=== PATIENT | female | born 1985 | race Caucasian/White ===

== ENCOUNTER 2022-08-06 11:03 | Inpatient (IN) | payer OTHER ==
[~2022-08-06] VITALS: Ht 162.6 cm; Wt 137.0 kg
[2022-08-06] VITALS (13 sets, daily range): BP systolic 99–151; BP diastolic 63–112
[~2022-08-06 11:03] MED LIST: LEVOTHYROXIN112 MC1 PO; ONDANSETRON4 MG PO; TAMOXIFEN CITRA10 MG PO; TRAMADOL HCL50 MG PO; TRULICITY1.5 MG/0.5; [UNRECOGNIZED DRUG - OTHER] PO
--- NOTE | 2022-08-06 16:00 | NUR ---
RECEIVED PT FROM PACU. PT IN STABLE CONDITION. YANG IN PLACE. CHRISTINA DRAINS PATENT. INCISION CDI. PT WITH C/O NAUSEA. WAS MEDICATION PRIOR TO ARRIVAL.
--- NOTE | 2022-08-06 20:20 | NUR ---
PATIENT RESTING IN BED AT THIS TIME WITH O2 VIA NASAL CANNULA IN PLACE AT 2LPM-O2 SAT 93-94% AT THIS TIME. PATIENT WITH C/O SEVERE POST-OP ABD PAIN.ABD IS SOFT WITH HYPOACTIVE BS. ABD DRESSING IN PLACE AND 2 CHRISTINA DRAINS INTACT WITH BLOODY DRAINAGE. MEDICATED WITH DILAUDID 1MG IVP FOR 9/10 PAIN SCALE. YANG CATH PATENT AND DRAINING YELLOW URINE. SCD'S IN PLACE. ENCOURAGED USE OF IS BUT WITH NEED REINFORCEMENT. IVF PATENT AND INFUSING VIA RIGHT WRIST AT 125CC/HR. SAFETY PRECAUTIONS REINFORCED. CALL LIGHT IN REACH. WILL CONT TO MONITOR,
[2022-08-07 00:02] VITALS: BP 136/92
--- NOTE | 2022-08-07 00:15 | NUR ---
PATIENT RESTING IN BED-CLAMMY TO TOUCH. PATIENT STATES THAT SHE IS DIAB AND TAKES TRULICITY. GLUCOSE MONITOR CHECKED AND WAS 247. IVF D51/2NS PATENT AND INFUSING VIA RIGHT WRIST. #1 CHRISTINA DRAIN-LEFT ABD DRAINED FOR 60CC OF BLOODY DRAINAGE. #2 CHRISTINA DRAIN RIGHT ABD DRAINED FOR 15CC OF SEROSANGUINOUS FLUID. YANG EMPTIED FOR 125CC OF VAL URINE. ABD DRAINING REMAINS CDI AT THIS TIME. O2 VIA NASAL CANNULA IN PLACE AT 2LPM. O2 SATS 95%. SCD'S IN PLACE. ATTEMPT TO CALL DR CANNON AT 0008-LEFT MESSAGE. AWAITING CALL BACK. WILL CONT TO MONITOR.
--- NOTE | 2022-08-07 00:40 | NUR ---
SPOKE WITH DR. CHAPARRO AND NEW ORDERS RECIEVED. WILL CHANGE IVF WHEN PROFILED ON EMAR. WILL CONT TO MONITOR.
--- NOTE | 2022-08-07 01:10 | NUR ---
PATIENT RESTING IN BED WITH HOB SLIGHTLY ELEVATED AND EYES CLOSED. RESPS ARE EVEN AND UNLABORED. O2 VIA NASAL CANNULA IN PLACE. IVF CHANGED TO NS AT 125CC/HR VIA RIGHT WRIST SITE. SITE REMAINS HEALTHY AT THIS TIME. CALL LIGHT IN REACH. WILL CONT TO MONITOR.
--- NOTE | 2022-08-07 02:31 | NUR ---
PATIENT RESTING IN BED-O2 OFF AND REAPPLIED. MEDICATED FOR PAIN WITH DILAUDID 1MG IVP FOR 8/10 ON PAIN SCALE AND WITH PHENERGAN 25MG IVP FOR NAUSEA. IVF NS PATENT AND INFUSING VIA RIGHT WRIST SITE-REMAINS HEALTHY AT THIS TIME. TAKING ONLY SMALL AMT OF ICE CHIPS AT THIS TIME. CALL LIGHT IN REACH. WILL CONT TO MONITOR.
[2022-08-07 04:05] VITALS: BP 132/91
--- NOTE | 2022-08-07 04:32 | NUR ---
PATIENT RESTING IN BED AT THIS TIME WITH EYES CLOSED. RESPS ARE EVEN AND UNLABORED AT THIS TIME. CHRISTINA DRAINS TO ABD INTACT. ABD DRESSING REMAINS DCI. O2 VIA NASAL CANNULA REAPPLIED. YANG CATH PATENT AND DRAINING VAL URINE. IVF NS PATENT AND INFUSING VIA RIGHT WRIST SITE AT 125CC/HR. PATIENT HAS ONLY BEEN TAKING A FEW ICE CHIPS THROUGHOUT THE NIGHT. CALL LIGHT IN REACH. WILL CONT TO MONITOR.
[2022-08-07 05:32] LABS: BASO% 0.4 % (0-3); EOS% 0.3 % (0-8); HEMATOCRIT 43.5 % (37.0-47.0); HEMOGLOBIN 13.3 g/dl (12.0-16.0); IMMATURE GRANULOCYTES 0.3 % (0.0-5.0); LYMPH% 12.8 % (15-41); MEAN CELL VOLUME 92.6 fL CALC (80.0-100.0); MEAN CORPUSCULAR HGB 28.3 pG CALC (26.0-32.0); MEAN CORPUSCULAR HGB CONC 30.6 g/dL CAL (32.0-36.0); MONO% 6.8 % (2-13); NEUT# 14.11 thou/uL (2.00-7.15); NEUT% 79.4 % (42-76); RED BLOOD COUNT 4.7 mill/uL (4.20-5.60); RED CELL DISTRI WIDTH 13.3 % (11.5-15.5)
[2022-08-07 06:57] VITALS: BP 140/90
--- NOTE | 2022-08-07 12:42 | NUR ---
DR. IVY TALKED WITH PT AT BEDSIDE PT STATED FEELING NAUSEA, ITCHY, PROVIDER STATED POSSIBLE MEDICATION REACTION. PT STATED UNDERSTANDING. PT C/O OF CHEST PAIN TO BELLY AREA. PT URINE OUPUT VERY LITTLE. PROVIDER AWARE. PT CHRISTINA DRAINS EMPTIED 60 TOTAL OUTPUT. PT DENIES ADDITIONAL NEEDS AT THE TIME.
--- NOTE | 2022-08-07 16:25 | NUR ---
PT AWARE NEED OF AMBULATION AND UP TO CHAIR.
[2022-08-07 16:41] VITALS: BP 141/76
[2022-08-07 18:40] VITALS: BP 123/85
--- NOTE | 2022-08-07 19:30 | NUR ---
RECEIVED REPORT FROM DAYSHIFT NURSE. PT NOTED LAYING IN BED. SURGICAL INCISIONS DRESSED AND TWO CHRISTINA DRAINS NOTED WITH RED OUTPUT. PT COMPLAINED OF PAIN 5 OUT OF 10 AT THIS TIME AND STATES FEELING BETTER THEN YESTERDAY. EDUCATED PT ON IMPORTANCE OF WALKING AND MOVING AROUND POST OP. ENCOURAGED PT TO WALK BEFORE END OF NIGHT. PT AGREED. CALL LIGHT WITHIN REACH AND SAFETY PRECAUTIONS IN PLACE.
--- NOTE | 2022-08-07 21:51 | NUR ---
WALKED PT DOWN THE HALLWAY PER NURSE RAMON.
--- NOTE | 2022-08-08 | NUR ---
PT LAYING IN BED, FOWLERS SLEEPING WITH O2 NASAL CANNULA ON DUE TO PT HAVING EXORTIONAL SOB. JPS DRAINED AND CHARTED OUTPUT. CALL LIGHT WITHIN REACH AND SAFETY PRECAUTIONS IN PLACE.
--- NOTE | 2022-08-08 04:00 | NUR ---
PT LAYING FOWLERS IN BED, SLEEPING AT THIS TIME. NASAL CANNULA IN PLACE, NO S/S OF DISTRESS. CALL LIGHT WITHIN REACH AND SAFETY PRECAUTIONS IN PLACE.
[2022-08-08 04:13] VITALS: BP 109/71
[2022-08-08 05:47] LABS: BASO% 0.2 % (0-3); IMMATURE GRANULOCYTES 0.3 % (0.0-5.0); LYMPH% 11.9 % (15-41); MEAN CELL VOLUME 93.2 fL CALC (80.0-100.0); MEAN CORPUSCULAR HGB 27.9 pG CALC (26.0-32.0); MEAN CORPUSCULAR HGB CONC 29.9 g/dL CAL (32.0-36.0); MONO% 5.7 % (2-13); NEUT# 12.58 thou/uL (2.00-7.15); NEUT% 78.9 % (42-76); RED BLOOD COUNT 3.98 mill/uL (4.20-5.60); RED CELL DISTRI WIDTH 13.6 % (11.5-15.5)
[2022-08-08 05:49] LABS: HEMATOCRIT 37.1 % (37.0-47.0); HEMOGLOBIN 11.1 g/dl (12.0-16.0)
[2022-08-08 06:04] LABS: CREATININE 1.3 mg/dL (0.5-1.0); POTASSIUM 4.5 mmol/l (3.5-5.1)
--- NOTE | 2022-08-08 06:28 | NUR ---
PT VOMITED 400CC OF RED/BROWN EMESIS. ADMINISTERED N/V MEDICATION PER EMAR TO PT. SAT PT UP ON SIDE OF BED WITH GINGERALE. CALL LIGHT WITHIN REACH AND SAFETY PRECAUTIONS IN PLACE.
[2022-08-08 06:40] VITALS: BP 133/64
--- NOTE | 2022-08-08 06:40 | NUR ---
[facility]
--- NOTE | 2022-08-08 07:45 | NUR ---
PT RESTING IN HIGH FOWLERS POSITION. A/OX3 ASSESSMENT AND VS COMPLETED HEART RHYTHM NORMAL .PT STATED FEELING NAUSEA TO BE MEDICATED.RESPIRATIONS ON ROOM AIR ALL SAFETY PRECAUTIONS IN PLACE WITH CALL LIGHT INREACH.
--- NOTE | 2022-08-08 07:55 | NUR ---
patient requested to get in bed, patient sitting on side of bed eating breakfast.
[2022-08-08 10:57] VITALS: BP 139/77
--- NOTE | 2022-08-08 12:00 | NUR ---
PT RESTING IN BED MEDICATED PER EMAR FOR PAIN .
[2022-08-08 14:45] VITALS: BP 127/78
--- NOTE | 2022-08-08 16:50 | NUR ---
PT RESTING IN HIGH FOWLERS POSITON AID STATED PT VOMITED. ZOFRAN PROVIDED.
[2022-08-08 19:07] VITALS: BP 143/88
--- NOTE | 2022-08-08 22:36 | NUR ---
PT BG NORMAL RANGE NO INSULIN GIVEN , CALL LIGHT WITHIN REACHED WILL CONT TO MONITOR
[2022-08-08 23:47] VITALS: BP 131/84
--- NOTE | 2022-08-09 02:30 | NUR ---
DILAUDID 1MG Q2 PRN GIVEN PER REQUEST FOR AB PAIN, PT REASSESS AND CARE PROVIDED, CALL LIGHT WITHIN REACHED, WILL CONT TO MONITOR
[2022-08-09 03:55] VITALS: BP 143/87
[2022-08-09 05:25] LABS: BASO% 0.3 % (0-3); EOS% 2.6 % (0-8); HEMATOCRIT 36.2 % (37.0-47.0); HEMOGLOBIN 10.9 g/dl (12.0-16.0); LYMPH% 9.5 % (15-41); MEAN CELL VOLUME 92.3 fL CALC (80.0-100.0); MEAN CORPUSCULAR HGB 27.8 pG CALC (26.0-32.0); MEAN CORPUSCULAR HGB CONC 30.1 g/dL CAL (32.0-36.0); MONO% 3.8 % (2-13); NEUT# 9.84 thou/uL (2.00-7.15); NEUT% 82.8 % (42-76); RED BLOOD COUNT 3.92 mill/uL (4.20-5.60); RED CELL DISTRI WIDTH 13.4 % (11.5-15.5)
[2022-08-09 06:05] LABS: ANION GAP 10 (6-22 (CALC)); BUN 17 mg/dL (7-17); BUN/CREATININE RATIO 19 (12-20 (CALC)); CARBON DIOXIDE 21 mmol/l (22-30); CHLORIDE 111 mmol/l (95-108); CREATININE 0.9 mg/dL (0.5-1.0); GFR FOR AFR.AMER. > 60 ML/MIN (>=60 (CALC)); GFR OTHER RACES > 60 ML/MIN (>=60 (CALC)); POTASSIUM 4.4 mmol/l (3.5-5.1); SODIUM 138 mmol/l (137-146)
[2022-08-09 06:28] VITALS: BP 138/90
--- NOTE | 2022-08-09 07:55 | NUR ---
PT RESING IN BED WITH EYES CLOSED. UPON AWAKENING PT STATES PAIN IS 8/10. REPSOTIONED. EDICATED SEE EAR. FOLE IN PLACE DRAINING URINE VIA GRAVITY SHOWING PEACH COLORED URINE. CHRISTINA DRAIN #1 OUTPUT @0750 90, OUPUT AT 0755 60CC. CHRISTINA DRAIN #2: 40CC. MIDLINE INCISION TO ABD IN CLEAN/DRY AND INTACT. UPDATED PT IN CURRENT PLAN OF CARE. FALL/SAFTEY PRECAUTION IN PLACE. CALL LIGHT WITHIN REACH.
[2022-08-09 10:59] VITALS: BP 145/84
--- NOTE | 2022-08-09 12:15 | NUR ---
PT IN BED COMPLANING OF PAIN 03/11. REPOSTIONED. MEDICATED SEE EMAR
--- NOTE | 2022-08-09 13:30 | NUR ---
PT UNABLE TO TOLERATE CONTRAST. MD NOTIFIED/AWARE.
--- NOTE | 2022-08-09 16:16 | NUR ---
PT UNABLE TO TOLERATE NG TUBE PER D ORDERS. NOTIFIED. EDUCATED PT ON NGTUBE EXPLAINED RISKS FOR REFUSAL. PT INDICATED UNDERSTANDING. FALL/SAFTEY PRECAUTION IN PLACE. CALL JOSTIN NICHOLE
[2022-08-09 19:00] VITALS: BP 155/92
[2022-08-09 19:19] VITALS: BP 155/92
--- NOTE | 2022-08-09 20:35 | NUR ---
MEDICATED PT BEFORE TRYING TO INSERTING NG TUBE BY JOCKEY'S AGENT BUT IT WAS UNSUCCESSFUL, PT DID NOT TOLERATE IT WELL, HAD TO REMOVE NG TUBE
[2022-08-10] VITALS (13 sets, daily range): BP systolic 122–186; BP diastolic 71–99
--- NOTE | 2022-08-10 02:51 | NUR ---
PT REFUSED NG AND TO BE NPO, REQUESTING TO DRINK WATER AND STATED ICE CHIPS NOT ENOUGHT FOR HER NURSE PAGE SAUSAGE MIXER TO HELP EDUCATE PT
--- NOTE | 2022-08-10 07:25 | NUR ---
patient sitting up in recliner.
--- NOTE | 2022-08-10 08:00 | NUR ---
GOT REPORT FROM PIT RECORDER NURSE. PATIENT ASSESSED. AOX4. PATIENT LAPS SITES ARE CLEAN DRY INTACT WITH DERMABOND. PATIENT HAS SURGICAL INCISION, BANDAGE ID DIRTY AND LIFTING. OLD DRESSING REMOVED AND INCISION CLEAN AND REDRESSED. PATIENT HAS 2 CHRISTINA DRAINS, ONE DRAIN IN THE LLQ AND ONE IN THE RLQ. BOTH EMPITED AND RECORDED. PATIENT ALSO HAS A YANG CATHETER IN PLACE. EMPTIED AND RECORDED. PATIENT HAS A PICC LINE IN THE MARY KAY. THE PURPLE LUMEN DOES NOT DRAW BACK BLOOD AND UNABLE TO FLUSH, THE RED DOES NOT DRAW BACK BLOOD BUT DOES FLUSH. GREEN CAPS PLACED ON PURPLE LUMEN AND ON ALL PORT HUB ON THE IV LINE FOR THE NORMAL SALINE. PATIENT C/O OF PAIN OF 6/10 IN HER ABD AND STATES THAT SHE FEELS NAUSEATED. SHE STATES THAT HER COMFORTABLE LEVEL OF PAIN IN A 3/4 OUT OF 10. ADVISED THAT I WILL REVIEW MEDICATIONS AND BRING WHAT I CAN. PATIENT VERBALIZED UNDERSTANDING AND AGREEMENT. PATIENT HAS FALL PRECAUTIONS IN PLACE. CALL LIGHT AND BEDSIDE TABLE WITH IN REACH. ADVISED TO CALL IF NEEDING ANYTHING. PATIENT VERBALIZED UNDERSTANDING.
--- NOTE | 2022-08-10 09:12 | NUR ---
patient requested to get back in bed.
--- NOTE | 2022-08-10 12:00 | NUR ---
PATIENT IS IN BED SLEEPING. CT COMPLETED. FALL PRECAUTIONS IN PLACE. CALL LIGHT AND BEDSIDE TABLE WITH IN REACH.
--- NOTE | 2022-08-10 16:35 | NUR ---
PATIENT LEAVING UNIT NOW FOR THE OR.
--- NOTE | 2022-08-10 16:58 | NUR ---
SPOKE TO ROBBIE (PATIENT AUNT) AND INFORMED HER THAT PATIENT IS NOW IN OR FOR PROCEDURE. I TOLD HER THAT OR NURSE WILL GIVE HER A CALL WHEN PATIENT IS OUT OF PROCEDURE. SHE VERBALIZED UNDERSTANDING AND AGREEMENT.
--- NOTE | 2022-08-10 21:57 | NUR ---
PATIENT RESTING IN BED-NPO WITH NG TUBE TO LOW INTERMITTANT WALL SUCTION DRAINING THICK DARK GREEN SECREATIONS. MEDICATED WITH PHENERGAN 25MG IVPB ORDERED FOR NAUSEA. IV SITE TO RIGHT UPPER ARM PICC WITH IVF NS PATENT AND INFUSING AT 125CC/HR. SITE APPEARS HEALTHY AT THIS TIME. YANG PATENT AND DRAINING YELLOW URINE. CHRISTINA DRAINS ARE INTACT-DRESSINGS ARE INTACT AND DRAINING PALE PINK FLUID. ABD DRESSING IS CDI AT THIS TIME. O2 VIA NASAL CANNULA INTACT AT 2LPM. CALL LIGHT IN REACH. WILL CONT TO MONITOR.
--- NOTE | 2022-08-10 22:19 | NUR ---
Check patient glucose meter check @2000, the meter readed 124.
--- NOTE | 2022-08-10 23:57 | NUR ---
PATIENT RESTING IN BED WITH HOB ELEVATED AND NGT IN PLACE-LIWS DRAINING THICK DARK GREEN. O2 VIA NASAL CANNULA IN PLACE AT 2LPM. YANG DRAINING YELLOW URINE. IVF NS PATENT AND INFUSING VIA RIGHT UPPER ARM PICC AT 125CC/HR. TORADOL 15MG IVP GIVEN. SCD'S IN PLACE. CALL LIGHT IN REACH. WILL CONT TO MONITOR.
--- NOTE | 2022-08-11 01:00 | NUR ---
PATIENT ASKING FOR PAIN AND NAUSEA MEDS-MEDICATED WITH DILAUDID 1MG IVP ORDERED FOR PAIN. LEFT CHRISTINA#1 EMPTIED FOR 80CC OF SEROSANGUINOS FLUID. RIGHT CHRISTINA#@-EMPTIED FOR 40CC OF SEROSANGUINOUS FLUID. MEDICATED WITH BENEDRYL FOR ITCHING. ASKING FOR PHERGAN FOR NAUSEA-TOO EARLY. IVF NS PATENT AND INFUSING AT 125CC/HR. ASKING FOR PO FLUID. EXPLAINED TO PATIENT AGAIN THAT SHE IS NPO WITH NG TUBE AND THAT SHE CAN'T HAVE ANYTHING TO EAT OR DRINK AT THIS TIME. NGTUBE WITH GREEN DRAINAGE AT THIS TIME. YANG PATENT AND DRAINING YEKLLOW URINE. SCD'S IN PLACE. O2 AT 2LPM IN PLACE. CALL LIGHT IN REACH. WILL CONT TO MONITOR.
[2022-08-11 03:43] VITALS: BP 183/116
[2022-08-11 04:00] VITALS: BP 155/96
--- NOTE | 2022-08-11 04:25 | NUR ---
PATIENT RESTING IN BED WITH HOB ELEVATED AND O2 VIA NASAL CANNULA IN PLACE AT 2LPM. PATIENT SNORING WITH LOUD BREATHING. LAB WORK DRAWN FROM PURPLE PORT FROM RIGHT UPPER ARM PICC. IVF NS PATENT AND INFUSING AT 125CC/HR. UNABLE TO FLUSH RED PORT-RESISTANCE MET. CALL LIGHT IN REACH. WILL CONT TO MONITOR.
[2022-08-11 04:39] LABS: BASO% 0.5 % (0-3); EOS% 6.2 % (0-8); HEMATOCRIT 38.2 % (37.0-47.0); HEMOGLOBIN 11.2 g/dl (12.0-16.0); IMMATURE GRANULOCYTES 0.6 % (0.0-5.0); MEAN CELL VOLUME 95.5 fL CALC (80.0-100.0); MEAN CORPUSCULAR HGB CONC 29.3 g/dL CAL (32.0-36.0); MONO% 6.6 % (2-13); NEUT# 10.26 thou/uL (2.00-7.15); NEUT% 65.1 % (42-76); RED CELL DISTRI WIDTH 13.6 % (11.5-15.5)
[2022-08-11 04:50] LABS: ALBUMIN 3.3 g/dL (3.2-5.0); ALKALINE PHOSPHATASE 50 u/l (38-126); ANION GAP 8 (6-22 (CALC)); BILIRUBIN, TOTAL 0.2 mg/dL (0.02-1.3); BUN 15 mg/dL (7-17); BUN/CREATININE RATIO 18 (12-20 (CALC)); CHLORIDE 110 mmol/l (95-108); CREATININE 0.8 mg/dL (0.5-1.0); GFR FOR AFR.AMER. > 60 ML/MIN (>=60 (CALC)); GFR OTHER RACES > 60 ML/MIN (>=60 (CALC)); SGOT/AST 49 u/l (14-36); SODIUM 143 mmol/l (137-146); TOTAL PROTEIN 6.2 g/dL (6.3-8.2)
[2022-08-11 04:53] LABS: CARBON DIOXIDE 29 mmol/l (22-30)
[2022-08-11 05:00] VITALS: BP 155/96
[2022-08-11 05:46] VITALS: BP 111/77
--- NOTE | 2022-08-11 08:00 | NUR ---
PATIENT IS IN BED SLEEPING. PATIENT HAS NG TUBE IN PLACE, PICC LINE IN THE RIGHT UPPER ARM, [address], YANG IN WELL. NS AT 125ML/HR. PATIENT IS AWAITING MD TO COME TO SEE HER. SHE IS REQUESTING TO HAVE THE NG TUBE REMOVED. INFORMED HER THAT MD WILL MAKE THAT DECISION WHEN HE COMES TO SHE HER. PATIENT VERBALIZED UNDERSTANDING. FALL PRECAUTIONS IN PLACE. CALL LIGHT AND BEDSIDE TABLE WITH IN REACH. ADVISED TO CALL IF NEEDING ANYTHING.
[2022-08-11 08:54] VITALS: BP 177/97
--- NOTE | 2022-08-11 09:50 | NUR ---
PATIENT CALLED REQUESTED PAIN MEDICATION AND SOMETHING FOR NAUSEA. ADVISED HER I WOULD GET MEDICATION FOR HER.
--- NOTE | 2022-08-11 12:43 | NUR ---
MD ROUNDED WITH PATIENT AND ORDERED TO HAVE NG REMOVED, CHRISTINA DRAIN 2 (RLQ) TO BE REMOVED, REMOVE YANG, TURN FLUIDS TO 75ML/HR, START ON FULL LIQUID DIET, AND TO AMBULATE PATIENT. PATIENT AGREED WITH PLAN. NO QUESTIONS AT THIS TIME FROM PATIENT.
--- NOTE | 2022-08-11 13:42 | NUR ---
NG TUBE, CHRISTINA DRAIN 2, AND YANG ALL REMOVED. PATIENT TOLERATED WELL. FLUIDS RATE CHANGED TO 75ML/HR FROM 125ML/HR. PATIENT SO FAR HAS TOLERED FULL LIQUIDS. ASKED IF THE DRESSING FOR THE INCISION SHOULD BE CHANGED AGAIN SINCE HE HAD JUST DOWN IT AND HE STATES NO NEED TO CHANGE FOR TODAY. RESUME DRESSING CHANGES TOMORROW (08/12/22). PATIENT MADE AWARE AND AGREED. PATIENT ASSIST ON GETTING UP FROM BED A FEW TIMES BUT NO WALKING WAS DOWN. PATIENT JUST WANTED TO STAND A FEW TIMES AND THEN THE NEXT TIME SHE WOULD TRY WALKING A BIT.
[2022-08-11 17:30] VITALS: BP 136/61
--- NOTE | 2022-08-11 19:30 | NUR ---
PATIENT RESTING IN BED WITH EYES CLOSED- RESPS ARE EVEN AND UNLABORED AT THIS TIME. LAST O2 SAT WAS 94% ON ROOM AIR. PATIENT WITH NG OUT. TAKING PO FLUIDS AND TOLERATING OK. STILL USING ANTIEMETIC MEDS FOR NAUSEA-NO VOMITTING. IVF NS PATENT AND INFUSING VIA RIGHT UPPER ARM PICC AT 75CC/HR. ABD IS SOFT WITH HYPOACTIVE BS. CHRISTINA #1 TO LEFT ABD REMAINS INTACT WITH MODERATE AMT OF SEROSANGUINOUS FLUID. CHRISTINA#@ WAS D/C'ED TODAY ON DAYSHIFT ANDSMALL DRESSING TO RIGHT ABD IS CDI. MIDLINE DRESSING IS CDI. CALL LIGHT IN REACH. WILL CONTTO MONITOR.
--- NOTE | 2022-08-11 23:40 | NUR ---
PATIENT RESTING IN BED-C/O SORE THROAT AND HEADACHE. MEDICATED WITH CHLOROSEPTIC BOB FOR SORE THROAT AND TORADOL FOR HEADACHE. PATIENT ASKING FOR MORE ANTIEMETIC MEDS-TOO EARLY AT THIS TIME AND PATIENT WAS MADE AWARE. #1 CHRISTINA EMPTIED FOR 90CC OF SEROSANGUINOUS FLUID AND CHARTED. SAFETY PRECAUTIONS REINFORCED. CALL LIGHT IN REACH. WILL CONT TO MONITOR.
[2022-08-12] VITALS (8 sets, daily range): BP systolic 122–153; BP diastolic 55–93
--- NOTE | 2022-08-12 01:24 | NUR ---
PATIENT ASSIST OOB TO THE BSC TO VOID 250CC OF VAL URINE. ASSISTED BACK TO BED. C/O ITCHING AND MEDICATED WITH BENEDRYL 25MG IVP VIA RIGHT UPPER ARM PICC. MEDICATED FOR POST-OP PAIN WITH DILAUDID 1MG IVP FOR 7/10 PAIN SCALE. MEDICATED FOR NAUSEA WITH PHENERGAN 25MG IN 50CC OF NS FOR NAUSEA, CHRISTINA EMPTIED FOR ANOTHER 90CC OF SEROSANGUINOUS FLUID. IVF PATENT AND INFUSING VIA RIGHT UPPER ARM PICC. SAFETY PRECAUTIONS REINFORCED. CALL LIGHT IN REACH. WILL CONT TO MONITOR.
--- NOTE | 2022-08-12 05:30 | NUR ---
PATIENT RESTING IN BED-C/O ABD PAIN, CHEST PAIN AND ASKING FOR NAUSEA MEDS.. MEDICATED WITH ZOFRAN 4MG IVP FOR NAUSEA AND WITH DILAUDID 1MG IVP FOR PAIN. RIGHT UPPER ARM PICC REMAINS INTACT WITH IVF NS PATENT AND INFUSING AT 75CC/HR. SECOND PORT WITH NOT FLUSH.LEFT ABD CHRISTINA DRAIN CONT TO DRAIN SEROSANGUINOUS FLUIDS. ENCOURAGED USE OF IS AND INCREASED AMBULATION FOR QHICKER RECOVERY. CALL LIGHT IN REACH. SAFETY [RECAUTIONS REINFORCED. WILL CONT TO MONITOR.
--- NOTE | 2022-08-12 08:40 | NUR ---
patient sitting up in recliner.
--- NOTE | 2022-08-12 09:05 | NUR ---
PT RESTING IN RECLINER UPON ENTERING ROOM. ASSESSENT COPLETED. DRESSING CDI. UPDATED [facility]. PT INDICATED UNDERSTANDING. FALL/SAFTEY PRECAUTIO ADY PLACE. CALL LIGHT WITHIN REACH
--- NOTE | 2022-08-12 10:00 | NUR ---
patient requested to get back in bed.
--- NOTE | 2022-08-12 12:21 | NUR ---
DRESSING CHANGE PERFORMED. PT TOLERATED WELL. PT STATES NO FEELING OF NAUSEA. FALL/SAFTEY PRECAUTIONS IN PLACE. CALL LIGHT WITHIN REACH.
--- NOTE | 2022-08-12 16:00 | NUR ---
FAMILY MEMBERS AT BEDSIDE. PT STATES NO NEEDS AT THIS TIME. FALL/SAFTEY PRECAUTION IN PLACE. CALL LIGHT WITHIN REACH.
--- NOTE | 2022-08-12 20:00 | NUR ---
PATIENT RESTING IN BED WITH HOB SLIGHTLY ELEVATED. EYES ARE CLOSED AND RESPS ARE EVEN AND UNLABORED. IVF NS PATENT AND INFUSING VIA RIGHT UPPER ARM PICC AT 75CC/HR. CHRISTINA DRAIN TO LEFT ABD INTACT AND DRAINING SEROSANGUINOUS FLUID. ABD DRESSINGS ARE CDI AT THIS TIME. CALL LIGHT IN REACH. WILL CONT TO MONITOR,.
--- NOTE | 2022-08-12 21:20 | NUR ---
PATIENT RESTING IN BED-C/O NAUSEA AND ABD PAIN-AKING FOR PHERGAN BUT TOO EARLY. MEDICATED WITH ZOFRAN 4MG IVP FOR NAUSEA AND DILAUDID 1MG IVP GIVEN FOR PAIN. GLUCOSE MONITOR WAS 141-NO COVERGE NEEDED. CALL LIGHT IN REACH. WILL CONT TO MONTIOR.
--- NOTE | 2022-08-13 00:01 | NUR ---
PATIENT RESTING IN BED ASKING FOR PAIN AND NAUSEA MEDS AGAIN. MEDICATED WITH DILAUDID 1MG IVP FOR 02/09 ABD PAIN AND PHERGAN 25MG IN 50CC OF NS HUNG AND INFUSING VIA RIGHT UPPER ARM PICC. REINFORCED WITH THE PATIENT SOME OF THE SIDE EFFECT OF NARCOTICS THAT INCLUDE DILAUDID THAT ARE DECREASED PARASTOLISIS OF THE BOWELS. INCREASED ACTIVITY INCLUDING AMBULATION PROMOTES FASTER RECOVERY FROM ABD SURGERY. ENCOURAGED USE OF IS Q1H WHILE AWAKE IN REPS OF 10. STATES THAT SHE HAS BEEN USING IT. IVF NS PATIENT AND INFUSING VIA RIGHT UPPER ARM PICC AT 75CC/HR. LEFT ABD CHRISTINA DRAIN EMPTIED FOR 110CC OF SEROSANGUINOUS FLUID. ABD DRESSING ARE CDI. SAFETY PRECAUTIONS REINFORCED. CALL LIGHT IN REACH. WILL CONT TO MONITOR.
[2022-08-13 03:14] VITALS: BP 152/88
--- NOTE | 2022-08-13 03:18 | NUR ---
PATIENT CONT TO C/O NAUSEA AND SPITTING UP SMALL AMT OF GREENISH COLORED FLUID. ASKING FOR PHERAGAN AND DILAUDID. TOO EARLY FOR PHENERGAN. MEDICATED WITH ZOFRAN FOR NAUSEA AND WITH DILAUDID FOR PAIN. SITTING UP ON THE SIDE OF THE BED. CHRISTINA DRAIN INTACT AND CONT TO DRAIN SERSANGUINOUS FLUID. IVF PATENT AND INFUSING AT 75CC/HR. CALL LIGHT IN REACH. WILL CONT TO MONITOR.
--- NOTE | 2022-08-13 03:45 | NUR ---
PATIENT ASSISTED OOB TO BSC TO VOID 250CC OF VAL URINE. ASSISTED BACK TO THE BED. CALL LIGHT IN REACH. WILL CONT TO MONITOR.
[2022-08-13 05:32] VITALS: BP 153/85
--- NOTE | 2022-08-13 06:15 | NUR ---
patient sitting in recliner.
--- NOTE | 2022-08-13 06:15 | NUR ---
PATIENT SITTING UP ON THE SIDE OF THE BED-SPITTING INTO EMESIS BAG-BELCHING. ASKING FOR PHERGAN AND PAIN MEDS. PHENERGAN 25MG IN 50CC IVPB HUNG ORDERED. DILAUDID 1MG GIVEN FOR ABD PAIN. CALL LIGHT IN REACH. WILL CONT TO MONITOR.
--- NOTE | 2022-08-13 07:37 | NUR ---
patient requested to get back in bed, staff told patient that staff will walk her after breakfast if she is not dizzy.
--- NOTE | 2022-08-13 08:00 | NUR ---
PT AWAKE AND ALERT UPON ENTERING ROOM. ASSESSMENT COMPLELTED. PT STATES PAIN IN ABD. PT EDUCATED ON PLAN OF CARE/ PAIN MEDICATION. AMBULATION ENCOURAGED. PT STATES NOT AT THIS TIME. CHRISTINA #[address], DRESSING CDI. FALL/SAFTEY PRECAUTION IN PLACE. CALL LIGHT WITHIN REACH
[2022-08-13 09:12] VITALS: BP 134/82
[2022-08-13 10:34] LABS: HEMATOCRIT 34.9 % (37.0-47.0); HEMOGLOBIN 10.7 g/dl (12.0-16.0); MEAN CELL VOLUME 91.4 fL CALC (80.0-100.0); MEAN CORPUSCULAR HGB CONC 30.7 g/dL CAL (32.0-36.0); RED BLOOD COUNT 3.82 mill/uL (4.20-5.60); RED CELL DISTRI WIDTH 13.3 % (11.5-15.5)
[2022-08-13 10:44] LABS: ANION GAP 9 (6-22 (CALC)); BUN 9 mg/dL (7-17); BUN/CREATININE RATIO 13 (12-20 (CALC)); CARBON DIOXIDE 28 mmol/l (22-30); CHLORIDE 104 mmol/l (95-108); CREATININE 0.7 mg/dL (0.5-1.0); GFR FOR AFR.AMER. > 60 ML/MIN (>=60 (CALC)); GFR OTHER RACES > 60 ML/MIN (>=60 (CALC)); POTASSIUM 3.5 mmol/l (3.5-5.1); SODIUM 138 mmol/l (137-146)
--- NOTE | 2022-08-13 12:15 | NUR ---
PT RESTING IN BED. STATES NAUSEA SUBSIDED WITH MEDICATION. STATES NO NEEDS AT THIS TIME. FALL/SAFTEY PRECAUTII ADY PLACE. CALL LIGHT WITHIN REACH.
[2022-08-13 13:43] VITALS: BP 141/86
--- NOTE | 2022-08-13 16:00 | NUR ---
DRESSIGN CHANGED PERFORMED. PT TOLERATED WELL. STATES NAUSEA IS " BETTER" FALL/SAFTEY PRECAUTION IN PLACE. CALL LIGHT WITHIN REACH
[2022-08-13 17:54] VITALS: BP 148/84
--- NOTE | 2022-08-13 20:00 | NUR ---
RECEIVED REPORT FROM NURSE VALERI, PATIENT RESTING IN BED, LEFT SIDE LYING POSITION, ONGOING IV MARY KAY DOUBLE LUMEN PICC LINE NS @ 75 CC/HR INFUSING WELL, BOWLE SOUNDS HYPOACTIVE 3/7 C/O BLOATING AND GAS PAIN, ABDOMINAL DRESSING CDI, CHRISTINA DRAIN X 1 DRAINING SEROSAGUINEOUS OUTPUT 210CC, USES INCENTIVE SPIROMETER, CALL LIGHT IN REACH.
[2022-08-13 23:02] VITALS: BP 147/80
[2022-08-14] VITALS (8 sets, daily range): BP systolic 123–152; BP diastolic 71–97
--- NOTE | 2022-08-14 | NUR ---
PATIENT RESTING IN BED, NAUSEA, SCHEDULED REGLAN GIVEN.CALL LIGHT IN REACH.
--- NOTE | 2022-08-14 04:27 | NUR ---
PATIENT C/O NAUSEA AND VOMITTED SMALL AMOUNT OF YELLOWISH GREENISH LIQUID, PRN ZOFRAN GIVEN.
--- NOTE | 2022-08-14 07:00 | NUR ---
Receive report from Arroyo RN.
--- NOTE | 2022-08-14 08:00 | NUR ---
Alert and oriented patient x3. Assessment head-to-toe complete. Patient does not refer pain at the time but refer nausea. Good heart and respiratory rhythm at the time of this note. GP in the L+ ABD SIZE. Dressing in the abd clean at this time. Picc line in the R+ UA. Patient is educated about medications, nursing plan for today. Patient refers to understanding. Safety and fall precautions in place. Call light within in reach.
--- NOTE | 2022-08-14 12:27 | NUR ---
Patient resting in bed. Stable at the time of this note. Safety and fall precautions in place. Patient with CT order. Medications are administered for CT preparation according to the medical order. Medication for nausea is given before going down. Patient goes down but reports that she does not tolerate the position. This is reported to Dr. Alcaraz.
--- NOTE | 2022-08-14 16:00 | NUR ---
Dressing is changed under sterile measures. Patient tolerates well.
--- NOTE | 2022-08-14 19:55 | NUR ---
Patient head to toe assessment completed. Double lumen PICC to MARY KAY flushes without resistance. CHRISTINA drain emptied. Dressing to abdomen in place. C/o pain to abdomen. Educated on pain management. Medicated for pain. Up to bathroom and ambulates independently. No ther concerns voiced at this time. Call light and personal items within reach.
--- NOTE | 2022-08-15 03:25 | NUR ---
Patient c/o pain and nausea. Patient medicated. Call light within reach.
[2022-08-15 04:27] VITALS: BP 125/65
[2022-08-15 06:05] VITALS: BP 116/57
--- NOTE | 2022-08-15 07:57 | NUR ---
PTRESTING IN HIGH FOWLERSPOSITION A/OX3 ASSESSMENT AND VSCOMPLETED.HEART RHYTHM NON TELE.RESPIRATIONS ON ROOMAIR PT CHRISTINA DRAIN NOTED. PICCLINE NOTEDTO RIGHT INNER UPPER ARM.ALLSAFETY PRECAUTIONS IN PLACE WITH CALL LIGHT INREACH.
[2022-08-15 09:45] VITALS: BP 123/72
[2022-08-15] MEDS ORDERED: PERCOCET 5/325M1 TAB PO (10:20)
[2022-08-15] MEDS ORDERED: ONDANSETRON4 MG PO (10:20)
[2022-08-15] MEDS ORDERED: ZPAK PO (11:02)
--- NOTE | 2022-08-15 13:05 | NUR ---
Discharge instructions given. Patient verbalizes understanding of same. Discharged in stable condition via Wheelchair to Home with staff. All belongings sent with pt PICCLINE REMOVED PER RN. NO BLOOD NOTED. JPDRAIN REMOVED.
[2022-08-19] MEDS ORDERED: TRAMADOL HCL50 MG PO (18:26)
[2022-08-19] MEDS ORDERED: PROMETHAZINE HY25 M1 PO (18:26)
== END 2022-08-15 13:10 | disposition home or self-care (01) | DRG 336 ==
LOC: ORM 11:03 → MS2 15:12
PROVIDERS: ADMIT Surgery; ATTEND Surgery
PROC: 0WUF0JZ Supplement Abdominal Wall with Synthetic Substitute, Open Approach (ICD-10-PCS; principal; 2022-08-06)
PROC: 0WJF4ZZ Inspection of Abdominal Wall, Percutaneous Endoscopic Approach (ICD-10-PCS; 2022-08-06)
PROC: 02HV33Z Insertion of Infusion Device into Superior Vena Cava, Percutaneous Approach (ICD-10-PCS; 2022-08-09)
PROC: B518ZZA Fluoroscopy of Superior Vena Cava, Guidance (ICD-10-PCS; 2022-08-09)
PROC: 0DNA4ZZ Release Jejunum, Percutaneous Endoscopic Approach (ICD-10-PCS; 2022-08-10)
PROC: 0DNB4ZZ Release Ileum, Percutaneous Endoscopic Approach (ICD-10-PCS; 2022-08-10)
DX: K43.0 Incisional hernia with obstruction, without gangrene (principal); K56.50 Intestinal adhesions [bands], unspecified as to partial versus complete obstruction; Z68.43 Body mass index [BMI] 50.0-59.9, adult; E11.9 Type 2 diabetes mellitus without complications; E06.3 Autoimmune thyroiditis; E66.01 Morbid (severe) obesity due to excess calories; Z79.85 Long-term (current) use of injectable non-insulin antidiabetic drugs
CPT/HCPCS: J0131; J0690; J1650; Q9967; S0164

== ENCOUNTER 2022-08-20 18:00 | Inpatient (IN) | payer OTHER ==
[~2022-08-20] VITALS: Ht 162.6 cm; Wt 157.0 kg
--- NOTE | 2022-08-20 17:40 | NUR ---
PT ARRIVED VIA MEDICAL TRANSPORT FROM [facility]. PT IS ALERT AND ORIENTED X3, NO C/O PAIN AT THIS TIME, LAST MEDICATED FOR PAIN AT 1630 AND ZOFRAN BY MEDICAL TRANSPORT. PT HAS PICC LINE TO CHRISTIAN MUÑIZ. PT ORIENTED TO ROOM AND CALL LIGHT IN REACH.
[~2022-08-20 18:00] MED LIST changes: +PERCOCET 5/325M1 TAB PO; +PROMETHAZINE HY25 M1 PO; +ZPAK PO
[2022-08-20 18:13] VITALS: BP 113/60
--- NOTE | 2022-08-20 18:45 | NUR ---
NOTIFIED THAT PT IS HERE AND ORDERS ARE NEEDED.
--- NOTE | 2022-08-20 19:35 | NUR ---
SPOKE WITH DR. CARDENAS REGARDING CLARIFICATION OF IVF. PT IS DIABETIC, CONCERNS REGARDING DEXTROSE IN PRESCRIBED FLUIDS ENDORSED. ORDER IS TO CONTINUE ORDERS PRESCRIBED PT IS NPO.
[2022-08-20 20:05] VITALS: BP 113/60
--- NOTE | 2022-08-20 20:30 | NUR ---
PATIENT RESTING IN BED AT THIS TIME-AWAKE ALERT AND ORIENTEDX3. PATIENT WAS TRANFERRED HERE FROM [facility] FOR SBO. PATIENT HAS HX OF HERNIA REPAIR HERE AT [facility] APPROX [address] CHAPARRO. PATIENT STATES THAT SHE HAS BEEN HAVING TROUBLE WITH NAUSEA AND VOMITTING SINCE GETTING HOME FROM THE HOSPITAL LAST WEEK ON 08/14. STATES THAT SHE HAS NOT HAD ANY BOWEL MOVEMENTS SINCE GOING HOME FROM THE HOSPITAL. PATIENT ALSO HAS BEEN HAVE LARGE AMT OF DRAINAGE FROM OLD LEFT ABD CHRISTINA DRAIN SITE. SITE IS NOW WITH OSTOMY APPLIANCE FOR MORE ACCURATE I&O. ABD IS SOFT WITH HYPOACTIVE BS. LUNGS ARE CLEAR BUT DIMINISHED IN THE BASES. STATES THAT SHE HAS BEEN HAVING COUGH WITH PRODUCTIVE YELLOW SECREATIONS. PROVIDED WITH IS AND ENCOURAGED TO USE IT INSTRUCTED Q1H WHILE AWAKE IN REPS OF 10. SCD'S WERE APPLIED. PATIENT WITH RIGHT UPPER ARM DOUBLE LUMENT PICC WITH GOOD BLOOD RETURN FROM BOTH PORT-SITE WAS PLACED TODAY AT [facility]. IVF D51/2NS HUNG AND INFUSING AT 150CC/HR. PATIENT C/O ABD PAIN-7/10 ON PAIN SCALE-MEDICATED WITH TORADOL ORDERED. ALSO MEDICATED WITH PHENERGAN 25PO WITH SIP OF H20. NPO EXCEPT FOR ICE CHIPS. ORIENTED TO ROOM AND SURROUNDINGS. INSTRUCTED ON USE OF NURSE CALL LIGHT SYSTEM AND TV REMOTE. SAFETY PRECAUTIONS REINFORCED. CALL LIGHT IN REACH.WILL CONT TO MONITOR.
--- NOTE | 2022-08-21 00:15 | NUR ---
PATIENT MIN ASSIST TO THE BR TO VOID. WANTS TO SIT UP IN RECLINER. CONT TO C/O ABD PAIN. NO VOMITTING AT THIS TIME. MEDICATED WITH BENEDRYL 25MG SCEDULED. TOO EARLY FOR TORADOL AT THIS TIME. IVF INFUSING ORDERED VIA RIGHT UPPER ARM PICC AT 150CC/HR. CALL LIGHT IN REACH.WILL CONT TO MONITOR.
--- NOTE | 2022-08-21 01:00 | NUR ---
C/O DRY SORE THROAT-MEDICATED WITH CHLORASEPTC BOB. ICE CHIPS AT BEDSIDE. STILL UP IN RECLINER. CALL LIGHT IN REACH.WILL CONT TO MONITOR.
--- NOTE | 2022-08-21 02:37 | NUR ---
ASSISTED BACK TO BED PER PATIENT REQUEST. IVF PATIENT AND INFUSING AT 150CC/HR. CALL LIGHT IN REACH. WILL CONT TO MONITOR.
[2022-08-21 03:47] VITALS: BP 128/75
--- NOTE | 2022-08-21 04:00 | NUR ---
PATIENT RESTING IN BED-C/O ABD PAIN-6/10 ON PAIN SCALE. MEDICATED WITH TORADOL ORDERED VIA RIGHT UPPER ARM PICC. IVF PATENT AND INFUSING AT 150CC/HR. LEFT LOWER ABD DRAIN SITE DRAINED FOR 40CC OF SEROUS FLUID. LAB WORK DRAWN FROM RIGHT UPPER ABD PICC WITHOUT ANY DIFFICULTY-GOOD BLOOD RETURN. FLUSHED PER PROTOCOL. C/O NAUSEA AND WILL MEDICATE WITH PHENERGAN. CALL LIGHT IN REACH. WILL CONT TO MONITOR.
[2022-08-21 05:56] LABS: BASO% 0.7 % (0-3); EOS% 9.1 % (0-8); HEMATOCRIT 34.4 % (37.0-47.0); HEMOGLOBIN 10.3 g/dl (12.0-16.0); IMMATURE GRANULOCYTES 0.7 % (0.0-5.0); LYMPH% 18.9 % (15-41); MEAN CELL VOLUME 92.5 fL CALC (80.0-100.0); MEAN CORPUSCULAR HGB 27.7 pG CALC (26.0-32.0); MEAN CORPUSCULAR HGB CONC 29.9 g/dL CAL (32.0-36.0); MONO% 5.9 % (2-13); NEUT# 7.12 thou/uL (2.00-7.15); NEUT% 64.7 % (42-76); RED BLOOD COUNT 3.72 mill/uL (4.20-5.60)
--- NOTE | 2022-08-21 06:07 | NUR ---
PATIENT SITTING ON THE SIDE OF THE BED-ANOTHER 60CC OF SEROUS FLUID EMPTIED FROM LEFT ABD DRAIN SITE. IVF CONT AT 150CC/HR VIA RIGHT UPPER ARM PICC. ENCOURAGED USE OF IS Q1H WHILE AWAKE. MEDICATED WITH BENEDRYL SCHEDULED. NO VOMITTING TONIGHT. NO BM TONIGHT. STILL WITH C/O ABD PAIN EVEN AFTER TORADOL GIVEN. ENCOURAGED INCREASED ACTIVITY. SAFETY PRECAUTIONS REINFORCED. CALL LIGHT IN REACH. WILL CONT TO MONITOR.
[2022-08-21 06:24] LABS: ALBUMIN 2.7 g/dL (3.2-5.0); BILIRUBIN, TOTAL 0.2 mg/dL (0.02-1.3); BUN 11 mg/dL (7-17); BUN/CREATININE RATIO 11 (12-20 (CALC)); CHLORIDE 96 mmol/l (95-108); GFR FOR AFR.AMER. > 60 ML/MIN (>=60 (CALC)); GFR OTHER RACES > 60 ML/MIN (>=60 (CALC)); SGOT/AST 43 u/l (14-36); SODIUM 137 mmol/l (137-146); TOTAL PROTEIN 5.2 g/dL (6.3-8.2)
[2022-08-21 06:27] LABS: ALKALINE PHOSPHATASE 76 u/l (38-126); ANION GAP 8 (6-22 (CALC)); CARBON DIOXIDE 36 mmol/l (22-30)
[2022-08-21 06:28] VITALS: BP 124/69
[2022-08-21 15:11] VITALS: BP 134/68
[2022-08-21 18:06] VITALS: BP 131/80
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
[2022-08-22 03:34] VITALS: BP 124/71
--- NOTE | 2022-08-22 04:45 | NUR ---
PATIENT IN RECLINER, NO APPARENT DISTRESS NOTED. CALL LIGHT AND BEDSIDE TABLE WITHIN REACH.
[2022-08-22 05:49] VITALS: BP 133/71
[2022-08-22 08:08] LABS: BASO% 0.9 % (0-3); EOS% 12.4 % (0-8); HEMATOCRIT 35.7 % (37.0-47.0); HEMOGLOBIN 10.8 g/dl (12.0-16.0); IMMATURE GRANULOCYTES 1.5 % (0.0-5.0); LYMPH% 21.4 % (15-41); MEAN CELL VOLUME 91.5 fL CALC (80.0-100.0); MEAN CORPUSCULAR HGB 27.7 pG CALC (26.0-32.0); MEAN CORPUSCULAR HGB CONC 30.3 g/dL CAL (32.0-36.0); MONO% 7.1 % (2-13); NEUT# 4.5 thou/uL (2.00-7.15); NEUT% 56.7 % (42-76); RED BLOOD COUNT 3.9 mill/uL (4.20-5.60)
--- NOTE | 2022-08-22 08:18 | NUR ---
PT RESTING IN BED. VSS, ALL SAFETY MEASURES IN PLACE. PT STATES NOT IN PAIN.
[2022-08-22 09:05] LABS: ANION GAP 8 (6-22 (CALC)); BUN 9 mg/dL (7-17); BUN/CREATININE RATIO 10 (12-20 (CALC)); CARBON DIOXIDE 37 mmol/l (22-30); CHLORIDE 96 mmol/l (95-108); CREATININE 0.9 mg/dL (0.5-1.0); GFR FOR AFR.AMER. > 60 ML/MIN (>=60 (CALC)); GFR OTHER RACES > 60 ML/MIN (>=60 (CALC)); POTASSIUM 2.8 mmol/l (3.5-5.1); SODIUM 138 mmol/l (137-146)
[2022-08-22 09:25] VITALS: BP 131/88
--- NOTE | 2022-08-22 10:15 | NUR ---
BARBARA REMOVED FROM MIDLINE INCISION. 19 BARBARA REMOVED WITHOUT INCIDENT. STERISTRIPS PLACED OVER INCISION.
[2022-08-22 13:18] VITALS: BP 125/83
--- NOTE | 2022-08-22 19:10 | NUR ---
REPORT RECEIVED FROM Jerica CASSIDY RN.
--- NOTE | 2022-08-22 19:15 | NUR ---
PATIENT ASSESSMENT COMPLETED AT THIS TIME. POTASSIUM NOT ADMINISTERED ON DAYSHIFT, TO BE STARTED TONIGHT. CALL LIGHT AND BEDSDIE TABLE WITHIN REACH.
[2022-08-22 19:17] VITALS: BP 138/75
[2022-08-22 19:18] VITALS: BP 126/74
--- NOTE | 2022-08-23 00:24 | NUR ---
PATIENT PLACED ON TELEMETRY
--- NOTE | 2022-08-23 04:45 | NUR ---
PATIENT SLEEPING, NO APPARENT DISTRESS NOTED. LABS DRAWN AT THIS TIME. DOUBLE PICC LINES BOTH FLUSHED AND PATENT WITH POSITIVE BLOOD RETURN. CALL LIGHT AND BEDSIDE TABLE WIHTIN REACH.
[2022-08-23 05:56] VITALS: BP 145/78
--- NOTE | 2022-08-23 07:00 | NUR ---
RECEIVE REPORT FROM ABEL GARZA.
--- NOTE | 2022-08-23 08:00 | NUR ---
Alert and oriented patient x3. Assessment head-to-toe complete. Patient does not refer pain at the time of this note. Pt connected to telemetry. Good heart and respiratory rhythm at the time of this note. Patient is educated about medications, nursing plan and for today. Patient refers to understanding. Safety and fall precautions in place. Call light within in reach.
[2022-08-23 08:51] LABS: ANION GAP 9 (6-22 (CALC)); BUN 6 mg/dL (7-17); BUN/CREATININE RATIO 7 (12-20 (CALC)); CARBON DIOXIDE 35 mmol/l (22-30); CHLORIDE 99 mmol/l (95-108); CREATININE 0.8 mg/dL (0.5-1.0); GFR FOR AFR.AMER. > 60 ML/MIN (>=60 (CALC)); GFR OTHER RACES > 60 ML/MIN (>=60 (CALC)); POTASSIUM 3.2 mmol/l (3.5-5.1); SODIUM 140 mmol/l (137-146)
[2022-08-23 09:19] VITALS: BP 146/88
--- NOTE | 2022-08-23 12:00 | NUR ---
PATIENT RESTING IN BED. STABLE AT THE TIME OF THIS NOTE. PATIENT CONNECTED TO TELEMETRY. SHE DOES NOT REFER TO PAIN OR DISCOMFORT AT THE TIME OF THIS NOTE. SAFETY AND FALL PRECAUTIONS IN PLACE. CALL LIGHT WITHIN IN REACH
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
[2022-08-23] MEDS ORDERED: NAPROXEN250 MG PO (13:37)
[2022-08-23] MEDS ORDERED: ROBITUSSIN30 MG/5 ML PO (13:40)
--- NOTE | 2022-08-23 16:00 | NUR ---
Discharge instructions given. Patient verbalizes understanding of same. Discharged in stable condition via Wheelchair to Home with staff. All belongings sent with pt.
[2022-08-26] MEDS ORDERED: EC-NAPROXEN500 MG PO (12:23)
[2022-08-26] MEDS ORDERED: ROBITUSSIN200 MG/10 PO (12:23)
== END 2022-08-23 16:00 | disposition home or self-care (01) | DRG 392 ==
LOC: MS2 18:00
PROVIDERS: ADMIT Surgery; ATTEND Surgery
DX: R11.2 Nausea with vomiting, unspecified (principal); L76.34 Postprocedural seroma of skin and subcutaneous tissue following other procedure; E87.6 Hypokalemia; E11.9 Type 2 diabetes mellitus without complications; F41.9 Anxiety disorder, unspecified; Y83.8 Other surgical procedures as the cause of abnormal reaction of the patient, or of later complication, without mention of misadventure at the time of the procedure; Z98.890 Other specified postprocedural states; Z79.85 Long-term (current) use of injectable non-insulin antidiabetic drugs